=== PATIENT | male | born 1955 | race Caucasian/White ===

== ENCOUNTER 2023-08-20 05:23 | Inpatient (IN) | payer MEDICARE, OTHER ==
[2023-08-14 15:23] LABS: BASOPHILS % (AUTO) 0.6 % (0-1); EOSINOPHILS # (AUTO) 0.1 X10'3 (0-0.9); EOSINOPHILS % (AUTO) 1.5 % (0-6); LYMPHOCYTES # (AUTO) 1.4 X10'3 (1.1-4.8); LYMPHOCYTES % (AUTO) 20.9 % (21-51); MEAN CORPUSCULAR HEMOGLOBIN 36.4 PG (27.0-31.0); MEAN CORPUSCULAR HGB CONC 33.9 g/dL (33.0-36.5); MEAN CORPUSCULAR VOLUME 107.4 FL (78-98); MEAN PLATELET VOLUME 6.5 FL (7.4-10.4); MONOCYTES # (AUTO) 0.8 X10'3 (0-0.9); MONOCYTES % (AUTO) 11.8 % (2-12); NEUTROPHILS # (AUTO) 4.5 X10'3 (1.8-7.7); NEUTROPHILS % (AUTO) 65.2 % (42-75); PRE OP HEMATOCRIT 43.2 % (42.0-52.0); PRE OP HEMOGLOBIN 14.6 g/dL (14.0-17.9); PRE OP PLATELET COUNT 222 X10'3 (140-440); PRE OP WHITE BLOOD COUNT 6.9 10'3 (4.8-10.8); RED BLOOD COUNT 4.02 X10'6 (4.70-6.10); RED CELL DISTRIBUTION WIDTH 15.8 % (11.5-14.5)
[2023-08-14 15:38] LABS: ALBUMIN 3.5 G/DL (3.4-5.0); ALBUMIN/GLOBULIN RATIO 0.9 (1.1-1.5); ALKALINE PHOSPHATASE 78 IU/L (46-116); BLOOD UREA NITROGEN 3 MG/DL (7-18); BUN/CREATININE RATIO 3.9 (10.0-20.0); CALCIUM 9.3 MG/DL (8.5-10.1); CHLORIDE 100 MMOL/L (99-107); CREATININE 0.77 MG/DL (0.60-1.10); PRE OP ALT 44 U/L (30-65); PRE OP ANION GAP 6 (8-16); PRE OP AST 47 U/L (10-37); PRE OP BILIRUB, TOTAL 0.7 MG/DL (0.0-1.0); PRE OP GLUCOSE 90 MG/DL (70-104); PRE OP SODIUM 132 MMOL/L (135-145); TOTAL CARBON DIOXIDE 25.6 MMOL/L (24-32); TOTAL PROTEIN 7.6 G/DL (6.4-8.2); eGFR > 90 ML/MIN
[2023-08-20] VITALS (31 sets, daily range): BP systolic 124–164; BP diastolic 80–102; PULSE 77–102; RESP 10–24; TEMP 97.1–98.3; O2SAT 89–100
[~2023-08-20] VITALS: Ht 182.9 cm; Wt 78.5 kg
[~2023-08-20 05:23] MED LIST: ASPI-611 PO; DILT180C89 PO; OMEP40CA21 PO; ringers solution, lacted 1,000 ML IV SCH
[2023-08-20] MEDS ORDERED: heparin, porcine 5000 units/ml vial SQ ONE (05:30)
[2023-08-20] MEDS ORDERED: metroNIDAZOLE-Flagyl 500mg/NS 100ML IVPB IV ONE (05:30)
[2023-08-20] MEDS ORDERED: MALTODEXTRIN/FRUCTOSE 0.68 KCAL/ML LIQUID 296ML BOTTLE PO ONE (05:30)
[2023-08-20] MEDS ORDERED: famotidine 20mg tablet PO ONE (05:30)
[2023-08-20] MEDS ORDERED: ceFOXitin 2GM-NS 100mL ADDvant 100 ML IV ONE (05:30)
[2023-08-20] MEDS ORDERED: diazepam 5mg tablet PO ONE (06:45)
[2023-08-20] MEDS ORDERED: LIDOcaine 1% W/epiNEPHrine 1:100,000 20ml vial ONE (07:19)
[2023-08-20] MEDS ORDERED: tobramycin 40mg/ml inj ONE ×2 (07:19→10:15)
[2023-08-20] MEDS ORDERED: BUPIVAcaine/PF 2.5 mg/ml (0.25%) 30ml vial ONE (07:19)
[2023-08-20] MEDS ORDERED: povidone-iodine 10% ointment 1 APPLIC APPLIC TP ONE (07:20)
[2023-08-20] MEDS ORDERED: ringers solution, lacted 1,000 ML IV SCH (07:30)
[2023-08-20] MEDS ORDERED: meperidine/PF 25mg/ml syringe IV PRN ×3 (07:30)
[2023-08-20] MEDS ORDERED: hydrALAZINE 20mg/ml inj. IV PRN (07:30)
[2023-08-20] MEDS ORDERED: morphine 4 MG/ML inj SYRINge IV PRN (07:30)
[2023-08-20] MEDS ORDERED: proCHLORperazine 10 MG/2 ml inj IV PRN (07:30)
[2023-08-20] MEDS ORDERED: acetaminophen 1,000mg/100ml IV 100 ML IV PRN (07:30)
[2023-08-20] MEDS ORDERED: labetalol 20mg/4ml (5mg/ml) syringe IV PRN (07:30)
[2023-08-20] MEDS ORDERED: morphine 2 MG/ML inj. syringe IV PRN (07:30)
[2023-08-20] MEDS ORDERED: ondansetron/PF 4mg/2ml inj IV PRN ×2 (07:30→12:00)
[2023-08-20] MEDS ORDERED: MIDAZolam 1 MG/ML 5ML VIAL ONE (07:36)
[2023-08-20] MEDS ORDERED: ondansetron/PF 4mg/2ml inj ONE (07:36)
[2023-08-20] MEDS ORDERED: sevoflurane 250ml liquid IH ONE (07:36)
[2023-08-20] MEDS ORDERED: metoprolol tartrate 1mg/ml inj IV ONE (07:36)
[2023-08-20] MEDS ORDERED: fentaNYL /PF 50mcg/ml 5ml ampule ONE (07:37)
[2023-08-20] MEDS ORDERED: LIDOcaine 2% (20mg/ml) 5ml vial ONE (08:04)
[2023-08-20] MEDS ORDERED: rocuronium 10mg/ml inj IV ONE (08:04)
[2023-08-20] MEDS ORDERED: propofol inj 20 ML IV ONE (08:04)
[2023-08-20] MEDS ORDERED: ePHEDrine 50MG/ML INJ. ONE (08:04)
[2023-08-20] MEDS ORDERED: 0.9 % SODIUM CHLORIDE 10 ML VIAL ONE (08:04)
[2023-08-20] MEDS ORDERED: dexamethasone sod phosphate 4mg/ml inj. ONE (08:18)
[2023-08-20] MEDS ORDERED: BUPIVAcaine/PF 2.5mg/ml (0.25%) 10ml vial ONE (10:53)
[2023-08-20] MEDS ORDERED: BUPIVACAINE liposomal/PF 13.3 MG/ML vial IM ONE (10:53)
[2023-08-20] MEDS ORDERED: ipratropium/albuterol 3ml nebule IH ONE (11:20)
[2023-08-20] MEDS ORDERED: sugammadex 200mg/2ml injection IV ONE (11:36)
[2023-08-20] MEDS ORDERED: morphine 10mg/ml inj. ONE (11:36)
[2023-08-20] MEDS ORDERED: normal saline 1000ml 1,000 ML IV SCH (12:00)
[2023-08-20] MEDS ORDERED: naloxone 0.4 mg/ml inj IV PRN (12:00)
--- NOTE | 2023-08-20 12:03 | NUR ---
Received from OR via HOSPITAL BED , accompanied by Anesthesiologist and report given by SHARON Anesthesiologist. PATIENT STILL UNCONCSCIOUS WITH ORAL AIRWAY, NO S/S OF PAIN, V/S WNL, SCD ON , PIV 20G LEFT FOREARM, LEFT IJ-TRIPLE LUMEN CATH, ISLAND DRESSING C/D/I TO ABDOMEN. ALVARES CATHETER DRAINING CLEAR YELLOW URINE. Addendum: 08/20/23 at 1247 by Flakito Tay RN Amended: Links added.
[2023-08-20 12:49] LABS: BASOPHILS % (AUTO) 0.1 % (0-1); EOSINOPHILS % (AUTO) 0.1 % (0-6); HEMOGLOBIN 11.5 g/dl (14.0-17.9); LYMPHOCYTES # (AUTO) 0.5 X10'3 (1.1-4.8); LYMPHOCYTES % (AUTO) 3.9 % (21-51); MEAN CORPUSCULAR HEMOGLOBIN 36.8 PG (27.0-31.0); MEAN CORPUSCULAR HGB CONC 33.7 g/dL (33.0-36.5); MEAN CORPUSCULAR VOLUME 109.1 FL (78-98); MEAN PLATELET VOLUME 6.7 FL (7.4-10.4); MONOCYTES # (AUTO) 0.8 X10'3 (0-0.9); MONOCYTES % (AUTO) 5.6 % (2-12); NEUTROPHILS # (AUTO) 12.4 X10'3 (1.8-7.7); NEUTROPHILS % (AUTO) 90.3 % (42-75); PLATELET COUNT 186 X10'3 (140-440); RED BLOOD COUNT 3.12 X10'6 (4.70-6.10); RED CELL DISTRIBUTION WIDTH 16.3 % (11.5-14.5); WHITE BLOOD COUNT 13.7 X10'3 (4.5-11.0)
[2023-08-20] MEDS ORDERED: HYDROmorph/NS 0.2 mg/ml PCA 100 ML IV SCH (13:00)
[2023-08-20] MEDS ORDERED: ringers solution, lacted 1,000 ML IV ONE (13:20)
[2023-08-20] MEDS: HYDROmorph/NS 0.2 mg/ml PCA 100 ML IV SCH ×6 (13:24→23:00)
[2023-08-20 13:25] LABS: APTT 30 SECONDS (22-32); INR 1.2 INR; PROTHROMBIN TIME 12.4 SECONDS (9.0-12.0)
[2023-08-20] MEDS ORDERED: LORazepam 2 mg/ml vial IV PRN ×2 (13:45)
[2023-08-20] MEDS ORDERED: haloperidol lactate 5mg/ml inj IM PRN (13:45)
[2023-08-20] MEDS: potassium CL 20mEq in D5-1/2NS 1,000 ML IV SCH (14:35)
--- NOTE | 2023-08-20 14:43 | NUR ---
PATIENT HAS MET ALL CRITERIA FOR TRANSFER TO ORTHO FLOOR. VSS. DRESSINGS INTACT. BED LOW, CALL LIGHT PRESENT AND 2 RAILS UP. RN PRESENT TO ACCEPT CARE OF PATIENT AND REPORT HAS BEEN CALLED. ALL QUESTIONS ANSWERED TO ACCEPTING RN. Addendum: 08/20/23 at 1459 by Flakito Tay RN Amended: Links added.
--- NOTE | 2023-08-20 15:00 | NUR ---
Patient in room ORTH[facility] 4011. I have received report from guido booth and had the opportunity to ask questions and assume patient care.
[2023-08-20] MEDS ORDERED: ceFOXitin 1 GM/D5W 50mL IVPB 100 ML IV SCH (16:00)
[2023-08-20] MEDS ORDERED: ceFOXitin inj 1,000 MG in normal saline 100ml IV soln 100 ML IV SCH (16:48)
[2023-08-20] MEDS ORDERED: ceFOXitin inj 1,000 MG in normal saline 100ml IV soln 100 ML IV ONE (16:55)
--- NOTE | 2023-08-20 18:36 | NUR ---
Problems reprioritized. Patient report given, questions answered & plan of care reviewed with stalin booth.
[2023-08-20 19:15] LABS: BASOPHILS % (AUTO) 0.3 % (0-1); EOSINOPHILS % (AUTO) 0 % (0-6); HEMATOCRIT 35.4 % (42.0-52.0); LYMPHOCYTES # (AUTO) 0.3 X10'3 (1.1-4.8); LYMPHOCYTES % (AUTO) 1.8 % (21-51); MEAN CORPUSCULAR HEMOGLOBIN 36.8 PG (27.0-31.0); MEAN CORPUSCULAR HGB CONC 33.8 g/dL (33.0-36.5); MEAN CORPUSCULAR VOLUME 109.1 FL (78-98); MEAN PLATELET VOLUME 6.4 FL (7.4-10.4); MONOCYTES # (AUTO) 1.1 X10'3 (0-0.9); MONOCYTES % (AUTO) 7.2 % (2-12); NEUTROPHILS # (AUTO) 14.3 X10'3 (1.8-7.7); NEUTROPHILS % (AUTO) 90.7 % (42-75); PLATELET COUNT 197 X10'3 (140-440); RED BLOOD COUNT 3.24 X10'6 (4.70-6.10); WHITE BLOOD COUNT 15.8 X10'3 (4.5-11.0)
[2023-08-20] MEDS: thiamine 100mg/ml 2ml inj. IV SCH (20:55)
[2023-08-21] VITALS (7 sets, daily range): BP systolic 132–151; BP diastolic 81–100; PULSE 91–102; RESP 13–20; TEMP 97.4–99.3; O2SAT 91–95
[2023-08-21] MEDS: potassium CL 20mEq in D5-1/2NS 1,000 ML IV SCH ×2 (00:08→18:02)
[2023-08-21] MEDS: HYDROmorph/NS 0.2 mg/ml PCA 100 ML IV SCH ×12 (01:00→23:00)
[2023-08-21 01:27] LABS: MEAN CORPUSCULAR HEMOGLOBIN 37.1 PG (27.0-31.0); WHITE BLOOD COUNT 14.2 X10'3 (4.5-11.0)
[2023-08-21 01:28] LABS: HEMATOCRIT 34.5 % (42.0-52.0); HEMOGLOBIN 11.7 g/dl (14.0-17.9); MEAN CORPUSCULAR HGB CONC 33.9 g/dL (33.0-36.5); MEAN CORPUSCULAR VOLUME 109.4 FL (78-98); MEAN PLATELET VOLUME 6.7 FL (7.4-10.4); PLATELET COUNT 180 X10'3 (140-440); RED BLOOD COUNT 3.15 X10'6 (4.70-6.10); RED CELL DISTRIBUTION WIDTH 16.2 % (11.5-14.5)
[2023-08-21 03:12] LABS: ANISOCYTOSIS 1+; PLATELET ESTIMATE NORMAL; POLYCHROMASIA 1+; TOTAL CELLS COUNTED 100
[2023-08-21 03:13] LABS: STOMATOCYTES FEW
[2023-08-21 06:15] LABS: BASOPHILS % (AUTO) 0.1 % (0-1); EOSINOPHILS % (AUTO) 0 % (0-6); HEMATOCRIT 32.4 % (42.0-52.0); LYMPHOCYTES # (AUTO) 0.6 X10'3 (1.1-4.8); LYMPHOCYTES % (AUTO) 4.2 % (21-51); MEAN CORPUSCULAR HEMOGLOBIN 36.9 PG (27.0-31.0); MEAN CORPUSCULAR HGB CONC 33.9 g/dL (33.0-36.5); MEAN CORPUSCULAR VOLUME 109.1 FL (78-98); MEAN PLATELET VOLUME 6.7 FL (7.4-10.4); MONOCYTES % (AUTO) 13.8 % (2-12); NEUTROPHILS # (AUTO) 11.7 X10'3 (1.8-7.7); NEUTROPHILS % (AUTO) 81.9 % (42-75); PLATELET COUNT 180 X10'3 (140-440); RED BLOOD COUNT 2.97 X10'6 (4.70-6.10); RED CELL DISTRIBUTION WIDTH 16.1 % (11.5-14.5); WHITE BLOOD COUNT 14.3 X10'3 (4.5-11.0)
[2023-08-21 06:19] LABS: ALBUMIN 2.3 G/DL (3.4-5.0); ANION GAP 8 (8-16); BLOOD UREA NITROGEN 6 MG/DL (7-18); CALCIUM 7.9 MG/DL (8.5-10.1); CHLORIDE 101 MMOL/L (99-107); GLUCOSE 173 MG/DL (70-104); POTASSIUM 3.6 MMOL/L (3.5-5.1); SODIUM 132 MMOL/L (135-145); TOTAL CARBON DIOXIDE 22.8 MMOL/L (24-32); eCRCL 81 ML/MIN; eGFR 75 ML/MIN
[2023-08-21] MEDS: pantoprazole 40mg Tablet.DR PO SCH (07:47)
[2023-08-21] MEDS: multivitamins, therapeutics tablet PO SCH (07:47)
[2023-08-21] MEDS: diltiazem CD 180mg cap (once-daily) PO SCH (07:47)
[2023-08-21] MEDS: folic acid 1mg/0.2ml inj IV SCH (07:47)
[2023-08-21] MEDS: thiamine 100mg/ml 2ml inj. IV SCH ×3 (07:47→19:45)
[2023-08-21 09:11] LABS: BASOPHILS % (AUTO) 0.1 % (0-1); EOSINOPHILS % (AUTO) 0 % (0-6); HEMATOCRIT 31.2 % (42.0-52.0); HEMOGLOBIN 10.5 g/dl (14.0-17.9); LYMPHOCYTES # (AUTO) 0.8 X10'3 (1.1-4.8); LYMPHOCYTES % (AUTO) 4.9 % (21-51); MEAN CORPUSCULAR HEMOGLOBIN 36.7 PG (27.0-31.0); MEAN CORPUSCULAR HGB CONC 33.6 g/dL (33.0-36.5); MEAN CORPUSCULAR VOLUME 109.2 FL (78-98); MEAN PLATELET VOLUME 6.6 FL (7.4-10.4); MONOCYTES # (AUTO) 2.1 X10'3 (0-0.9); MONOCYTES % (AUTO) 13.7 % (2-12); NEUTROPHILS # (AUTO) 12.5 X10'3 (1.8-7.7); NEUTROPHILS % (AUTO) 81.3 % (42-75); PLATELET COUNT 175 X10'3 (140-440); RED BLOOD COUNT 2.85 X10'6 (4.70-6.10); RED CELL DISTRIBUTION WIDTH 16.1 % (11.5-14.5); WHITE BLOOD COUNT 15.4 X10'3 (4.5-11.0)
[2023-08-21 09:55] LABS: ANISOCYTOSIS 1+; PLATELET ESTIMATE NORMAL; TOTAL CELLS COUNTED 100
[2023-08-21] MEDS ORDERED: PCA WASTE DOCUMENTATION 1 MG ML MC SCH (10:30)
[2023-08-21 12:44] LABS: BASOPHILS % (AUTO) 0.1 % (0-1); EOSINOPHILS % (AUTO) 0 % (0-6); HEMATOCRIT 31.4 % (42.0-52.0); HEMOGLOBIN 10.5 g/dl (14.0-17.9); LYMPHOCYTES % (AUTO) 6.2 % (21-51); MEAN CORPUSCULAR HEMOGLOBIN 36.7 PG (27.0-31.0); MEAN CORPUSCULAR HGB CONC 33.5 g/dL (33.0-36.5); MEAN CORPUSCULAR VOLUME 109.7 FL (78-98); MEAN PLATELET VOLUME 6.6 FL (7.4-10.4); MONOCYTES # (AUTO) 2.2 X10'3 (0-0.9); MONOCYTES % (AUTO) 14.1 % (2-12); NEUTROPHILS # (AUTO) 12.5 X10'3 (1.8-7.7); NEUTROPHILS % (AUTO) 79.6 % (42-75); PLATELET COUNT 163 X10'3 (140-440); RED BLOOD COUNT 2.86 X10'6 (4.70-6.10); RED CELL DISTRIBUTION WIDTH 16.4 % (11.5-14.5); WHITE BLOOD COUNT 15.7 X10'3 (4.5-11.0)
--- NOTE | 2023-08-21 15:55 | NUR ---
asked dr Perez if IJ line could be DC, he wants to leave the line in for now. will reevaluate tomorrow and dr Perez was ok with dressing change i let him know it was coming off so i replaced dressing with a picc dressing kit .
[2023-08-21] MEDS ORDERED: LORazepam 2 mg/ml vial IV PRN (16:10)
[2023-08-21] MEDS ORDERED: LORazepam 1 MG tablet PO PRN (16:10)
--- NOTE | 2023-08-21 18:29 | NUR ---
Problems reprioritized. Patient report given, questions answered & plan of care reviewed with stalin booth.
[2023-08-21] MEDS: heparin, porcine 5000 units/ml vial SQ SCH (19:45)
[2023-08-21 22:25] LABS: HEMOGLOBIN 9.6 g/dl (14.0-17.9); MEAN PLATELET VOLUME 6.5 FL (7.4-10.4); PLATELET COUNT 152 X10'3 (140-440)
[2023-08-21 22:26] LABS: BASOPHILS % (AUTO) 0.2 % (0-1); EOSINOPHILS % (AUTO) 0 % (0-6); HEMATOCRIT 28.6 % (42.0-52.0); LYMPHOCYTES # (AUTO) 1.2 X10'3 (1.1-4.8); LYMPHOCYTES % (AUTO) 9.1 % (21-51); MEAN CORPUSCULAR HEMOGLOBIN 36.5 PG (27.0-31.0); MEAN CORPUSCULAR HGB CONC 33.6 g/dL (33.0-36.5); MEAN CORPUSCULAR VOLUME 108.6 FL (78-98); MONOCYTES # (AUTO) 1.8 X10'3 (0-0.9); MONOCYTES % (AUTO) 13.3 % (2-12); NEUTROPHILS # (AUTO) 10.3 X10'3 (1.8-7.7); NEUTROPHILS % (AUTO) 77.4 % (42-75); RED BLOOD COUNT 2.64 X10'6 (4.70-6.10); RED CELL DISTRIBUTION WIDTH 16.1 % (11.5-14.5); WHITE BLOOD COUNT 13.4 X10'3 (4.5-11.0)
[2023-08-22] VITALS (7 sets, daily range): BP systolic 144–157; BP diastolic 90–99; PULSE 72–103; RESP 12–18; TEMP 97.7–98.6; O2SAT 92–96
[2023-08-22] MEDS: HYDROmorph/NS 0.2 mg/ml PCA 100 ML IV SCH ×6 (01:00→11:00)
--- NOTE | 2023-08-22 02:30 | NUR ---
received report from Claudia, RN - pt resting w/o distress. cadd infusing prn with IVF.
[2023-08-22] MEDS: potassium CL 20mEq in D5-1/2NS 1,000 ML IV SCH ×2 (05:25→07:28)
[2023-08-22 06:13] LABS: BASOPHILS % (AUTO) 0.1 % (0-1); EOSINOPHILS % (AUTO) 0.1 % (0-6); HEMATOCRIT 28.7 % (42.0-52.0); HEMOGLOBIN 9.8 g/dl (14.0-17.9); LYMPHOCYTES # (AUTO) 1.4 X10'3 (1.1-4.8); LYMPHOCYTES % (AUTO) 12.5 % (21-51); MEAN CORPUSCULAR HEMOGLOBIN 37.1 PG (27.0-31.0); MEAN CORPUSCULAR VOLUME 109.1 FL (78-98); MEAN PLATELET VOLUME 6.9 FL (7.4-10.4); MONOCYTES # (AUTO) 1.6 X10'3 (0-0.9); NEUTROPHILS % (AUTO) 72.3 % (42-75); PLATELET COUNT 146 X10'3 (140-440); RED BLOOD COUNT 2.63 X10'6 (4.70-6.10); RED CELL DISTRIBUTION WIDTH 16.3 % (11.5-14.5)
--- NOTE | 2023-08-22 06:27 | NUR ---
reported to days. noted pt passing flatus - anticipate discontinue cadd and change to oral pain meds for transfer home.
[2023-08-22 06:34] LABS: ALBUMIN 2.2 G/DL (3.4-5.0); ANION GAP 5 (8-16); BLOOD UREA NITROGEN 4 MG/DL (7-18); BUN/CREATININE RATIO 4.8 (10.0-20.0); CALCIUM 8.7 MG/DL (8.5-10.1); CHLORIDE 103 MMOL/L (99-107); CREATININE 0.84 MG/DL (0.60-1.10); GLUCOSE 103 MG/DL (70-104); POTASSIUM 3.6 MMOL/L (3.5-5.1); SODIUM 135 MMOL/L (135-145); TOTAL CARBON DIOXIDE 27.1 MMOL/L (24-32); eCRCL 96 ML/MIN; eGFR > 90 ML/MIN
[2023-08-22 06:52] LABS: ANISOCYTOSIS 1+; PLATELET ESTIMATE NORMAL; TOTAL CELLS COUNTED 100
[2023-08-22 06:53] LABS: SMUDGE CELLS FEW
[2023-08-22] MEDS: diltiazem CD 180mg cap (once-daily) PO SCH (07:25)
[2023-08-22] MEDS: thiamine 100mg/ml 2ml inj. IV SCH ×3 (07:26→20:31)
[2023-08-22] MEDS: multivitamins, therapeutics tablet PO SCH (07:26)
[2023-08-22] MEDS: pantoprazole 40mg Tablet.DR PO SCH (07:26)
[2023-08-22] MEDS: heparin, porcine 5000 units/ml vial SQ SCH ×2 (07:27→20:29)
[2023-08-22] MEDS: folic acid 1mg/0.2ml inj IV SCH (07:27)
--- NOTE | 2023-08-22 09:35 | NUR ---
DR QUINTERO DID PT ROUNDING AND TOOK OF BANDAGE AND STATED PT CAN LEAVE SURGICAL WOUND DANA AT THIS TIME UNLESS THERE IS DRAINAGE COMING OUT. NO DRAINAGE AT THIS TIME
[2023-08-22 13:07] LABS: BASOPHILS % (AUTO) 0.2 % (0-1); EOSINOPHILS % (AUTO) 0.3 % (0-6); HEMOGLOBIN 11.1 g/dl (14.0-17.9); LYMPHOCYTES # (AUTO) 1.9 X10'3 (1.1-4.8); LYMPHOCYTES % (AUTO) 13.8 % (21-51); MEAN CORPUSCULAR HEMOGLOBIN 36.7 PG (27.0-31.0); MEAN CORPUSCULAR HGB CONC 33.6 g/dL (33.0-36.5); MEAN CORPUSCULAR VOLUME 109.3 FL (78-98); MEAN PLATELET VOLUME 6.8 FL (7.4-10.4); MONOCYTES % (AUTO) 14.3 % (2-12); NEUTROPHILS % (AUTO) 71.4 % (42-75); PLATELET COUNT 172 X10'3 (140-440); RED BLOOD COUNT 3.02 X10'6 (4.70-6.10); RED CELL DISTRIBUTION WIDTH 16.4 % (11.5-14.5)
[2023-08-22] MEDS ORDERED: oxyCODONE/APAP 5-325mg tablet PO PRN (14:30)
--- NOTE | 2023-08-22 15:51 | NUR ---
wasted cadd and was unable to put the last number in before dc of medication. was unable to document 1300 setting check before dc of med VTBI 86, given 2.8, attempts 14/16, end settings were the same VTBI 86, given 2.8, attempts the pt had not used the cadd pump. charge nurse aware of this stated to just make a note.
--- NOTE | 2023-08-22 18:06 | NUR ---
IJ DC PER MD, PRESSURE WAS HELD, NO BLEEDING, DRESSING APPLIED, RECHECKED AND STILL GOOD.
--- NOTE | 2023-08-22 18:45 | NUR ---
Problems reprioritized. Patient report given, questions answered & plan of care reviewed with MILENA ABBOTT RN.
--- NOTE | 2023-08-22 18:50 | NUR ---
Patient in room [facility]TH[facility] 4011. I have received report from LOREN RN and had the opportunity to ask questions and assume patient care.
[2023-08-22 20:35] LABS: BASOPHILS % (AUTO) 0.3 % (0-1); EOSINOPHILS # (AUTO) 0.1 X10'3 (0-0.9); EOSINOPHILS % (AUTO) 0.8 % (0-6); HEMATOCRIT 30.6 % (42.0-52.0); HEMOGLOBIN 10.2 g/dl (14.0-17.9); LYMPHOCYTES # (AUTO) 1.5 X10'3 (1.1-4.8); LYMPHOCYTES % (AUTO) 13.4 % (21-51); MEAN CORPUSCULAR HEMOGLOBIN 36.6 PG (27.0-31.0); MEAN CORPUSCULAR HGB CONC 33.4 g/dL (33.0-36.5); MEAN CORPUSCULAR VOLUME 109.5 FL (78-98); MEAN PLATELET VOLUME 6.7 FL (7.4-10.4); MONOCYTES # (AUTO) 1.7 X10'3 (0-0.9); MONOCYTES % (AUTO) 15.4 % (2-12); NEUTROPHILS # (AUTO) 7.8 X10'3 (1.8-7.7); NEUTROPHILS % (AUTO) 70.1 % (42-75); PLATELET COUNT 142 X10'3 (140-440); RED BLOOD COUNT 2.79 X10'6 (4.70-6.10); RED CELL DISTRIBUTION WIDTH 16.7 % (11.5-14.5); WHITE BLOOD COUNT 11.2 X10'3 (4.5-11.0)
--- NOTE | 2023-08-23 06:30 | NUR ---
Problems reprioritized. Patient report given, questions answered & plan of care reviewed with KAREN SANON.
--- NOTE | 2023-08-23 06:37 | NUR ---
Patient in room [facility]TH[facility] 4011. I have received report from OKSANA Selby and had the opportunity to ask questions and assume patient care.
[2023-08-23] MEDS: potassium CL 20mEq in D5-1/2NS 1,000 ML IV SCH (06:40)
[2023-08-23] MEDS: diltiazem CD 180mg cap (once-daily) PO SCH (07:17)
[2023-08-23] MEDS: multivitamins, therapeutics tablet PO SCH (07:18)
[2023-08-23] MEDS: heparin, porcine 5000 units/ml vial SQ SCH (07:18)
[2023-08-23] MEDS: pantoprazole 40mg Tablet.DR PO SCH (07:18)
[2023-08-23 08:00] VITALS: RESP 16; O2SAT 96
[2023-08-23] MEDS: folic acid 1mg/0.2ml inj IV SCH (08:00)
[2023-08-23] MEDS: thiamine 100mg/ml 2ml inj. IV SCH ×2 (08:00→13:00)
[2023-08-23 08:03] VITALS: RESP 20; O2SAT 98
[2023-08-23] MEDS ORDERED: psyllium seed 5.8 gm packet (sugar-free) PO SCH (11:25)
[2023-08-23] MEDS ORDERED: magnesium hydroxide 30ml (MOM) UD suspension PO ONE (11:25)
[2023-08-23] MEDS ORDERED: docusate sod 100mg capsule PO ONE (11:35)
[2023-08-23 12:26] LABS: BASOPHILS % (AUTO) 0.3 % (0-1); EOSINOPHILS # (AUTO) 0.1 X10'3 (0-0.9); EOSINOPHILS % (AUTO) 0.8 % (0-6); HEMATOCRIT 34.2 % (42.0-52.0); HEMOGLOBIN 11.8 g/dl (14.0-17.9); LYMPHOCYTES # (AUTO) 1.6 X10'3 (1.1-4.8); LYMPHOCYTES % (AUTO) 11.9 % (21-51); MEAN CORPUSCULAR HEMOGLOBIN 37.1 PG (27.0-31.0); MEAN CORPUSCULAR HGB CONC 34.4 g/dL (33.0-36.5); MEAN CORPUSCULAR VOLUME 107.7 FL (78-98); MEAN PLATELET VOLUME 7.1 FL (7.4-10.4); MONOCYTES # (AUTO) 2.1 X10'3 (0-0.9); NEUTROPHILS # (AUTO) 9.8 X10'3 (1.8-7.7); PLATELET COUNT 200 X10'3 (140-440); RED BLOOD COUNT 3.17 X10'6 (4.70-6.10); RED CELL DISTRIBUTION WIDTH 16.3 % (11.5-14.5); WHITE BLOOD COUNT 13.7 X10'3 (4.5-11.0)
[2023-08-23 12:37] LABS: ALBUMIN 2.7 G/DL (3.4-5.0); ANION GAP 10 (8-16); BLOOD UREA NITROGEN 7 MG/DL (7-18); BUN/CREATININE RATIO 8.3 (10.0-20.0); CALCIUM 8.9 MG/DL (8.5-10.1); CHLORIDE 96 MMOL/L (99-107); CREATININE 0.84 MG/DL (0.60-1.10); GLUCOSE 94 MG/DL (70-104); POTASSIUM 3.5 MMOL/L (3.5-5.1); SODIUM 128 MMOL/L (135-145); TOTAL CARBON DIOXIDE 22.2 MMOL/L (24-32); eCRCL 96 ML/MIN; eGFR > 90 ML/MIN
[2023-08-23 13:01] LABS: ANISOCYTOSIS 1+; GIANT PLATELET FEW; LARGE PLATELETS FEW; PLATELET ESTIMATE NORMAL; TOTAL CELLS COUNTED 100
[2023-08-23 13:02] LABS: HYPERSEGMENTED NEUTROPHILS FEW
[2023-08-23] MEDS ORDERED: MULT-25 PO (14:50)
[2023-08-23] MEDS ORDERED: FOLI IV (14:50)
[2023-08-23] MEDS ORDERED: THI100I IV (14:50)
[2023-08-23] MEDS ORDERED: HYDR-3965 PO (14:50)
--- NOTE | 2023-08-23 15:00 | NUR ---
SQUARE DANCE CALLER documentation: I have reviewed and agree with all interventions, assessments performed and documented by Cristiano Christensen LVN.
[2023-08-23] MEDS ORDERED: docusate sod 100mg capsule PO SCH (20:00)
[2023-08-25] MEDS ORDERED: thiamine 100mg tablet PO SCH (08:00)
[2023-08-25] MEDS ORDERED: folic acid 1mg tablet PO SCH (08:00)
== END 2023-08-23 15:55 | disposition home or self-care (01) | DRG 330 ==
LOC: ORTHO 4S 05:23 → PAS IN 05:23 → UNDOADMIN 05:23 → EDBD 07:30 → PAS IN 14:53 → ORTHO 4S 14:53
PROVIDERS: ADMIT Colon & Rectal Surgery; ATTEND Colon & Rectal Surgery
PROC: 05HY33Z Insertion of Infusion Device into Upper Vein, Percutaneous Approach (ICD-10-PCS; 2023-08-20)
PROC: B544ZZA Ultrasonography of Left Jugular Veins, Guidance (ICD-10-PCS; 2023-08-20)
PROC: 0DJD4ZZ Inspection of Lower Intestinal Tract, Percutaneous Endoscopic Approach (ICD-10-PCS; 2023-08-20)
PROC: 0DJD8ZZ Inspection of Lower Intestinal Tract, Via Natural or Artificial Opening Endoscopic (ICD-10-PCS; 2023-08-20)
PROC: 0DNU4ZZ Release Omentum, Percutaneous Endoscopic Approach (ICD-10-PCS; 2023-08-20)
PROC: 0DNE4ZZ Release Large Intestine, Percutaneous Endoscopic Approach (ICD-10-PCS; 2023-08-20)
PROC: 0DTN0ZZ Resection of Sigmoid Colon, Open Approach (ICD-10-PCS; principal; 2023-08-20 07:36)
DX: C18.7 Malignant neoplasm of sigmoid colon (principal); F10.139 Alcohol abuse with withdrawal, unspecified; I10 Essential (primary) hypertension; K66.0 Peritoneal adhesions (postprocedural) (postinfection); M19.90 Unspecified osteoarthritis, unspecified site; K21.9 Gastro-esophageal reflux disease without esophagitis; D72.829 Elevated white blood cell count, unspecified; Z79.899 Other long term (current) drug therapy; Z87.891 Personal history of nicotine dependence; Z53.31 Laparoscopic surgical procedure converted to open procedure
CPT/HCPCS: 36415; 71045; 74018; 80048; 80053; 82948; 84145; 85007; 85025; 85610; 85651; 85730; 86140; 86885; 86900; 86901; 86920; 87081; 88305; 88309; 93005; 94640; 94760; A4346; A4355; A4402; A4615; A4618; A6258; A6449; A7000; C1758; C9290; G0378; J0694; J1100; J1170; J1644; J2250; J2274; J2405; J2704; J3010; J3260; J3411; J3480; J3490; J7030; J7120